=== PATIENT | male | born 1945 | race American Indian/Alaskan Native ===

== ENCOUNTER 2020-12-14 15:48 | Emergency (ER) | payer MEDICARE ==
--- NOTE | 2020-12-14 17:20 | Emergency Department Report ---
ED General Adult HPI - General Chief complaint: Abdominal Pain Stated complaint: BLLOD IN URINE Time Seen by Provider: 12/14/20 16:55 Source: EMS Mode of arrival: Stretcher Limitations: Altered Mental Status - History of Present Illness Initial comments: Patient presents to the emergency department from [facility] for evaluation of blood in Castellanos. Per the records sent with the patient from the halfway there are no records of the patient being on anticoagulant medications or antiplatelet medication such as Plavix. Patient is demented but able to answer questions about his name and if he is in pain or not. Patient has no complaints. -: unknown Severity scale (0 -10): 0 Consistency: constant Improves with: none Worsens with: none Associated Symptoms: denies other symptoms Treatments Prior to Arrival: none - Related Data Previous Rx's Medication Instructions Recorded Last Taken Type Fluconazole [Diflucan TAB] 200 mg PO QDAY #1 tablet 12/14/20 Unknown Rx cephALEXin [Keflex] 500 mg PO BID #14 capsule 12/14/20 Unknown Rx Allergies Allergy/AdvReac Type Severity Reaction Status Date / Time No Known Allergies Allergy Unverified 12/14/20 22:01 ED Review of Systems ROS: Stated complaint: BLLOD IN URINE Other details as noted in HPI Comment: Unobtainable due to pts medical conditions (Not able to obtain review of systems secondary to patient's dementia) ED Past Medical Hx - Social History Smoking Status: Unknown if ever smoked - Medications Home Medications: Home Medications Medication Instructions Recorded Confirmed Last Taken Type Fluconazole [Diflucan TAB] 200 mg PO QDAY #1 tablet 12/14/20 Unknown Rx cephALEXin [Keflex] 500 mg PO BID #14 capsule 12/14/20 Unknown Rx ED Physical Exam - General Limitations: Other (Dementia) General appearance: alert, in no apparent distress, other (demented) - Head Head exam: Present: atraumatic - Eye Eye exam: Present: normal appearance, PERRL, EOMI Pupils: Present: normal accommodation - ENT ENT exam: Present: normal exam, mucous membranes moist - Neck Neck exam: Present: normal inspection - Respiratory Respiratory exam: Present: normal lung sounds bilaterally (Demented demented). Absent: respiratory distress - Cardiovascular Cardiovascular Exam: Present: regular rate. Absent: normal rhythm - GI/Abdominal GI/Abdominal exam: Present: soft, normal bowel sounds. Absent: distended, tenderness - External exam: Present: other (Castellanos in place) - Extremities Exam Extremities exam: Present: normal inspection - Neurological Exam Neurological exam: Present: alert - Psychiatric Psychiatric exam: Present: other (Not able to completely assess due to the patient's baseline dementia) - Skin Skin exam: Present: warm, dry, normal color. Absent: rash ED Course Vital Signs 12/14/20 12/14/20 12/14/20 16:37 16:39 16:45 Temperature 98.0 F Pulse Rate 68 59 L Respiratory 11 L 10 L Rate Blood Pressure 102/66 102/65 Blood Pressure [Left] O2 Sat by Pulse 98 98 Oximetry 12/14/20 12/14/20 12/14/20 16:58 17:01 17:15 Temperature Pulse Rate 74 58 L Respiratory 17 10 L 10 L Rate Blood Pressure 103/69 103/73 Blood Pressure [Left] O2 Sat by Pulse 99 99 Oximetry 12/14/20 12/14/20 12/14/20 17:31 17:45 18:01 Temperature Pulse Rate 71 66 63 Respiratory 12 13 9 L Rate Blood Pressure 104/74 99/72 106/83 Blood Pressure [Left] O2 Sat by Pulse 100 100 98 Oximetry 12/14/20 12/14/20 12/14/20 18:15 18:31 18:45 Temperature Pulse Rate 72 68 Respiratory 11 L 11 L 16 Rate Blood Pressure 103/84 116/89 Blood Pressure [Left] O2 Sat by Pulse 98 Oximetry 12/14/20 19:36 Temperature Pulse Rate 62 Respiratory 18 Rate Blood Pressure Blood Pressure 105/74 [Left] O2 Sat by Pulse 99 Oximetry ED Medical Decision Making - Lab Data Result diagrams: 12/14/20 17:18 Lab Results 12/14/20 12/14/20 12/14/20 Range/Units 17:18 17:18 19:43 WBC 7.5 (4.5-11.0) K/mm3 RBC 3.96 (3.65-5.03) M/mm3 Hgb 12.0 (11.8-15.2) gm/dl Hct 34.8 L (35.5-45.6) % MCV 88 (84-94) fl MCH 30 (28-32) pg MCHC 34 (32-34) % RDW 12.8 L (13.2-15.2) % Plt Count 208 (140-440) K/mm3 Lymph % (Auto) 22.8 (13.4-35.0) % [place] % (Auto) 8.4 H (0.0-7.3) % Eos % (Auto) 2.9 (0.0-4.3) % Baso % (Auto) 0.4 (0.0-1.8) % Lymph # (Auto) 1.7 (1.2-5.4) K/mm3 [place] # (Auto) 0.6 (0.0-0.8) K/mm3 Eos # (Auto) 0.2 (0.0-0.4) K/mm3 Baso # (Auto) 0.0 (0.0-0.1) K/mm3 Seg Neutrophils % 65.5 (40.0-70.0) % Seg Neutrophils # 4.9 (1.8-7.7) K/mm3 PT 18.8 H (12.2-14.9) Sec. INR 1.57 H (0.87-1.13) APTT 32.1 (24.2-36.6) Sec. Urine Color Red (Yellow) Urine Turbidity Cloudy (Clear) Urine pH 5.0 (5.0-7.0) Ur Specific [place] 1.026 (1.003-1.030) Urine Protein 100 mg/dl (Negative) mg/dL Urine Glucose (UA) Neg (Negative) mg/dL Urine Ketones Neg (Negative) mg/dL Urine Blood Lg (Negative) Urine Nitrite Neg (Negative) Urine Bilirubin Neg (Negative) Urine Urobilinogen < 2.0 (<2.0) mg/dL Ur Leukocyte Esterase Neg (Negative) Urine WBC (Auto) > 182.0 H (0.0-6.0) /HPF Urine RBC (Auto) > 182.0 (0.0-6.0) /HPF Urine WBC Clumps 3+ /HPF Urine Yeast (Budding) 3+ /HPF - Medical Decision Making Patient's Castellanos was flushed and urinalysis was obtained The patient is greater than 182 white blood cells and red blood cells per high- power field The patient has UTIs likely secondary to indwelling Cast[place]anos as well as the yeast found in the urine Patient given Keflex and a dose of Diflucan in the ED Patient will be sent home with a repeat dosing of Diflucan in 7 days Critical care attestation.: If time is entered above; I have spent that time in minutes in the direct care of this critically ill patient, excluding procedure time. ED Disposition Clinical Impression: UTI (urinary tract infection), Hematuria, Yeast UTI Disposition: TO HOME OR SELFCARE Is pt being admited?: No Does the pt Need Aspirin: No Condition: Stable Instructions: Urinary Tract Infection, Adult, Hematuria, Adult Additional Instructions: Return if worse Prescriptions: Fluconazole [Diflucan TAB] 200 mg PO QDAY #1 tablet Referrals: PATTI HAN [Other] - 3-5 Days Time of Disposition: 20:33
[2020-12-14 17:29] LABS: Basophils % (Auto) 0.4 % (0.0-1.8); Eosinophils # (Auto) 0.2 K/mm3 (0.0-0.4); Eosinophils % (Auto) 2.9 % (0.0-4.3); Hematocrit 34.8 % (35.5-45.6); Lymphocytes # (Auto) 1.7 K/mm3 (1.2-5.4); Lymphocytes % (Auto) 22.8 % (13.4-35.0); Mean Corpuscular HGB Conc 34 % (32-34); Mean Corpuscular Volume 88 fl (84-94); Monocytes # (Auto) 0.6 K/mm3 (0.0-0.8); Monocytes % (Auto) 8.4 % (0.0-7.3); Platelet Count 208 K/mm3 (140-440); Red Blood Count 3.96 M/mm3 (3.65-5.03); Red Cell Distribution Width 12.8 % (13.2-15.2)
[2020-12-14 17:39] LABS: INR 1.57 (0.87-1.13)
[2020-12-14 17:41] LABS: Partial Thromboplastin Time 32.1 Sec. (24.2-36.6)
[2020-12-14] MEDS ORDERED: SODIUM CHLORIDE IRRI 500 ML 500 ML IR ONE (18:16)
[2020-12-14 20:11] LABS: Bilirubin,Urine NEG (Negative); Blood,Urine LG (Negative); Color,Urine Red (Yellow); Urobilinogen,Urine < 2.0 mg/dL (<2.0)
[2020-12-14 20:14] LABS: RBC,Urine > 182.0 /HPF (0.0-6.0); WBC,Urine > 182.0 /HPF (0.0-6.0)
[2020-12-14] MEDS ORDERED: cephALEXin ORAL LIQD 500 MG/10 ML ORAL LIQD PO ONE (20:31)
[2020-12-14] MEDS ORDERED: FLUCONAZOLE 100 MG TAB PO ONE (21:57)
[2020-12-14] MEDS ORDERED: cephALEXin 500 MG CAP PO ONE (22:30)
[2020-12-14] MEDS ORDERED: FLUCONAZOLE 200 MG TAB PO ONE (22:30)
[2020-12-15 02:03] VITALS: BP 123/79
== END 2020-12-15 02:03 | disposition home or self-care (01) ==
LOC: ED 15:48
DX: N39.0 Urinary tract infection, site not specified (principal); B37.9 Candidiasis, unspecified; R31.9 Hematuria, unspecified; Z79.899 Other long term (current) drug therapy
CPT/HCPCS: 36415; 81001; 85025; 85610; 85730